=== PATIENT | female | born 1965 | race Caucasian/White ===

== ENCOUNTER → 2017-10-29 08:35 | Outpatient (CLI) | payer OTHER, SELFPAY ==
[2017-11-03 10:39] LABS: HPV APTIMA, High Risk Negative (Negative)
== END ==
PROVIDERS: Family Provider Family Medicine; PCP Family Medicine; Visit Provider Obstetrics & Gynecology
DX: Z12.4 Encounter for screening for malignant neoplasm of cervix (principal)
CPT/HCPCS: 88175; G0145

== ENCOUNTER → 2017-11-22 15:15 | Outpatient (CLI) | payer OTHER, SELFPAY ==
--- NOTE | 2017-11-22 15:15 | DT_ITS ---
This patient was seen during an EMR downtime November 19, 2017 - November 26, 2017. This patient may have a combination of paper and electronic documentation or all paper documentation. All documentation is viewable within the e-chart portion of [facility] for each patient visit.
--- NOTE | 2017-11-22 15:18 | BI_ITS ---
MAMMOGRAPHY - BILATERAL SCREENING REASON FOR EXAM: Female, 52 years old. Routine annual screening examination. PERTINENT HISTORY: Non-contributory. TECHNIQUE: Digital bilateral breast gracy (3D mammographic acquisition) in the CC and MLO projections. 2-D mediolateral oblique (MLO) and craniocaudad (CC) views of both breasts were obtained. CAD: Full Field Digital Mammography with Computer Added Detection was performed. COMPARISON: Comparison is made with prior outside examination dated July 07, 2016. FINDINGS: Breast Composition: There are scattered areas of fibroglandular density. There are no dominant masses or suspicious calcifications. Stable asymmetry were more breast tissue is seen in the upper outer quadrant of the left breast as compared to the right side. No other significant abnormalities are identified. There has been no significant change since the prior study. BI/SCREENING MAMM (CAD), BILAT IMPRESSION: Stable bilateral screening mammogram. Yearly follow-up mammogram recommended. (A) ASSESSMENT CATEGORY: BIRADS Category 2: Benign. A letter regarding these results will be sent to the patient by the facility within 30 days. Approximately 10% of breast cancers are not detected by mammography. A normal mammogram should not delay biopsy of a clinically suspicious abnormality. [id number] Electronically Signed: Polo Cheng MD at 12:37 EDT Tel [phone], Service support ,
== END ==
PROVIDERS: Family Provider Family Medicine; PCP Family Medicine; Visit Provider Obstetrics & Gynecology
DX: Z01.419 Encounter for gynecological examination (general) (routine) without abnormal findings (principal); Z12.31 Encounter for screening mammogram for malignant neoplasm of breast
CPT/HCPCS: 77063; 77067

== ENCOUNTER → 2018-08-02 07:31 | Outpatient (CLI) | payer OTHER, SELFPAY ==
--- NOTE | 2018-08-02 07:44 | EKG12_ITS ---
Test Reason : PRE OP Blood Pressure : / mmHG Vent. Rate : 069 BPM Atrial Rate : 069 BPM P-R Int : 134 ms QRS Dur : 072 ms QT Int : 394 ms P-R-T Axes : 046 029 024 degrees QTc Int : 422 ms Normal sinus rhythm Normal ECG No previous ECGs available Confirmed by DIPAK PALACIOS, KATHERINE ([id number]), assistant film editor DOLLY AGRAWAL ([id number]) on 08/06/2018 11:44:43 AM Referred By: Bandar Jackson Confirmed By:KATHERINE QUESADA MD
[2018-08-02 08:07] LABS: Hematocrit 42.4 % (37-47); Mean Corpuscular Hgb 28.1 pg (27.0-32.0); Mean Platelet Vol. 11.3 fl (6.2-12.0); Platelet Count 184 K/mm3 (150-450); RBC Distribution Width CV 13.8 % (11.6-14.6); RBC Distribution Width SD 42.2 fl (35.1-43.9); Red Blood Count 4.99 M/mm3 (4.2-5.4); White Blood Count 6.3 K/mm3 (4.4-11.0)
[2018-08-02 08:11] LABS: Scan Indicated on CBC? Y/N NO
[2018-08-02 08:36] LABS: Anion Gap 7 (5-15); BUN 16 mg/dL (7-18); BUN/Creat Ratio 22.3 RATIO (10-20); Calcium,Total 8.3 mg/dL (8.5-10.1); Chloride 109 mmol/L (98-107); Creatinine, Serum 0.72 mg/dL (0.55-1.02); EST Glomerular Filtration Rate 91 mL/min (>60); Est Glom Filt Rate - Afr Amer 110 mL/min (>60); Glucose 101 mg/dL (74-106); Potassium 3.9 mmol/L (3.5-5.1); Sodium Level 143 mmol/L (136-145)
== END ==
PROVIDERS: Family Provider Family Medicine; PCP Family Medicine; Referring Provider Orthopaedic Surgery; Visit Provider Orthopaedic Surgery
DX: Z01.810 Encounter for preprocedural cardiovascular examination (principal); Z01.818 Encounter for other preprocedural examination
CPT/HCPCS: 36415; 80048; 85027; 93005

== ENCOUNTER → 2018-11-13 16:43 | Outpatient (CLI) | payer OTHER, SELFPAY ==
[2018-08-27 14:22] VITALS: BMI 34.0
[2018-11-13 18:21] LABS: Free T3 2.4 pg/mL (2.18-3.98); T4 Free Direct 1.08 ng/dL (0.76-1.46); Thyroid Stim Hormone (TSH) 0.97 uIU/mL (0.358-3.74)
[2018-11-15 16:07] LABS: Thyroid Peroxidase AB 11 IU/mL (0-34)
[2018-11-18 11:44] LABS: Thyroglobulin Antibody < 1.0 IU/mL (0.0-0.9)
== END ==
PROVIDERS: Family Provider Family Medicine; PCP Family Medicine; Visit Provider Family Medicine
DX: E01.0 Iodine-deficiency related diffuse (endemic) goiter (principal); R53.83 Other fatigue
CPT/HCPCS: 36415; 84439; 84443; 84481; 86376; 86800

== ENCOUNTER → 2019-07-19 06:58 | Outpatient (CLI) | payer OTHER, SELFPAY ==
[2018-08-27 14:22] VITALS: BMI 34.0
[2019-07-19 08:17] LABS: Absolute Lymphocyte Count 3.04 X10^3/uL (0.83-4.51); Absolute Neutrophil Count 6.1 X10^3/uL (2.0-7.7); Basophil# 0.09 X10^3/uL; Basophil% 0.9 % (0-1); Eosinophil# 0.13 X10^3/uL; Eosinophils% 1.3 % (0-5); Hematocrit 42.1 % (37-47); Hemoglobin 13.6 g/dL (12.0-15.0); Lymphocyte # 3.04 X10^3/ul (4.0); Mean Corp Hgb Conc 32.3 g/dL (32-36); Mean Corpuscular Hgb 26.9 pg (27.0-32.0); Mean Corpuscular Volume 83.4 fL (81-99); Mean Platelet Vol. 11.3 fl (6.2-12.0); Monocyte# 0.73 X10^3/uL; Monocyte% 7.2 % (0-10); NRBC Flagged by Analyzer 0 % (0-5); Neutrophil # 6.12 X10^3/uL (2.7-7.7); Neutrophil % 60.2 % (47-70); Platelet Count 203 K/mm3 (150-450); RBC Distribution Width CV 14.4 % (11.6-14.6); RBC Distribution Width SD 43.5 fl (35.1-43.9); Red Blood Count 5.05 M/mm3 (4.2-5.4); White Blood Count 10.2 K/mm3 (4.4-11.0)
[2019-07-19 09:00] LABS: AST(SGOT) 21 U/L (15-37); Alanine Aminotransfer ALT/SGPT 27 U/L (13-56); Albumin, Serum 3.2 g/dL (3.2-5.0); Alkaline Phosphatase 114 U/L (45-117); Anion Gap 3 (5-15); BUN 14 mg/dL (7-18); BUN/Creat Ratio 18.5 RATIO (10-20); Calcium,Total 8.5 mg/dL (8.5-10.1); Chloride 107 mmol/L (98-107); Cholesterol 162 mg/dL (200); Creatinine, Serum 0.76 mg/dL (0.55-1.02); EST Glomerular Filtration Rate 85 mL/min (>60); Est Glom Filt Rate - Afr Amer 103 mL/min (>60); Free T3 2.9 pg/mL (2.18-3.98); Globulin 3.2 g/dL (2.2-4.2); Glucose 94 mg/dL (74-106); High Density Lipoprotein 56 mg/dL; Potassium 4.2 mmol/L (3.5-5.1); Protein, Total 6.4 g/dL (6.4-8.2); Sodium Level 140 mmol/L (136-145); T4 Free Direct 0.87 ng/dL (0.76-1.46); Thyroid Stim Hormone (TSH) 1.17 uIU/mL (0.358-3.74); Triglycerides 111 mg/dL; Very Low Density Lipoprotein 22 mg/dL (5-40)
== END ==
LOC: LAB 07:01
PROVIDERS: PCP Family Medicine; Referring Provider Family Medicine; Visit Provider Family Medicine
DX: Z00.00 Encounter for general adult medical examination without abnormal findings (principal); Z51.81 Encounter for therapeutic drug level monitoring; R53.83 Other fatigue
CPT/HCPCS: 36415; 80053; 80061; 84439; 84443; 84481; 85025

== ENCOUNTER → 2019-08-22 07:08 | Outpatient (CLI) | payer OTHER, SELFPAY ==
[2018-08-27 14:22] VITALS: BMI 34.0
--- NOTE | 2019-08-22 07:12 | BI_ITS ---
MAMMOGRAPHY - BILATERAL SCREENING REASON FOR EXAM: Female, 54 years old. Routine annual screening examination. PERTINENT HISTORY: Non-contributory. TECHNIQUE: Digital bilateral breast kelechi (3D mammographic acquisition) in the CC and MLO projections. 2-D mediolateral oblique (MLO) and craniocaudad (CC) views of both breasts were obtained. CAD: Full Field Digital Mammography with Computer Added Detection was performed. COMPARISON: Comparison is made with prior examination dated November 22, 2017 and July 07, 2016. FINDINGS: Breast Composition: There are scattered areas of fibroglandular density. There are no dominant masses or suspicious calcifications. Once again, there is stable asymmetry of breast tissue with more breast tissue is seen in the upper quadrant of the left breast as compared to the right side. This is unchanged. No other significant abnormalities are identified. There has been no significant change since the prior study. BI/SCREEN MAMM (CAD) W/KELECHI BILAT IMPRESSION: Stable bilateral screening mammogram. Yearly follow-up mammogram recommended. (A) ASSESSMENT CATEGORY: BIRADS Category 2: Benign. A letter regarding these results will be sent to the patient by the facility within 30 days. Approximately 10% of breast cancers are not detected by mammography. A normal mammogram should not delay biopsy of a clinically suspicious abnormality. [id number] Electronically Signed: Polo Cheng, at 10:08 EST , Service support ,
== END ==
PROVIDERS: PCP Family Medicine; Referring Provider Nurse Practitioner Women's Health; Visit Provider Nurse Practitioner Women's Health
DX: Z12.31 Encounter for screening mammogram for malignant neoplasm of breast (principal)
CPT/HCPCS: 77063; 77067

== ENCOUNTER → 2020-04-26 13:02 | Outpatient (CLI) | payer OTHER, SELFPAY ==
[2020-04-26 12:34] VITALS: BMI 42.1
[2020-04-26 15:35] LABS: Estradiol 18.2 pg/mL; Follicle Stimulating Hormone 73.7 mIU/mL; Thyroid Stim Hormone (TSH) 1.17 uIU/mL (0.358-3.74)
== END ==
PROVIDERS: PCP Family Medicine; Referring Provider Obstetrics & Gynecology; Visit Provider Obstetrics & Gynecology
DX: N95.1 Menopausal and female climacteric states (principal)
CPT/HCPCS: 36415; 82670; 83001; 84443

== ENCOUNTER → 2020-05-24 13:26 | Outpatient (CLI) | payer OTHER, SELFPAY ==
[2020-05-24 13:08] VITALS: BMI 43.0
== END ==
PROVIDERS: PCP Family Medicine; Referring Provider Obstetrics & Gynecology; Visit Provider Obstetrics & Gynecology
DX: Z67.10 Type A blood, Rh positive (principal)
CPT/HCPCS: 36415; 86850; 86900; 86901

== ENCOUNTER → 2020-08-27 12:32 | Outpatient (CLI) | payer OTHER, SELFPAY ==
[2020-05-24 13:08] VITALS: BMI 43.0
--- NOTE | 2020-08-27 12:33 | BI_ITS ---
MAMMOGRAPHY - BILATERAL SCREENING REASON FOR EXAM: Female, 55 years old. Routine annual screening examination. PERTINENT HISTORY: Non-contributory. TECHNIQUE: Digital bilateral breast kelechi (3D mammographic acquisition) in the CC and MLO projections. 2-D mediolateral oblique (MLO) and craniocaudad (CC) views of both breasts were obtained. CAD: Full Field Digital Mammography with Computer Added Detection was performed. COMPARISON: Comparison is made with prior examination dated 08/22/2019 and 11/22/2017. FINDINGS: Breast Composition: There are scattered areas of fibroglandular density. There are no dominant masses or suspicious calcifications. No other significant abnormalities are identified. There has been no significant change since the prior study. BI/SCRN MAMM (CAD)W/KELECHI BILAT IMPRESSION: Stable bilateral screening mammogram. Yearly follow-up mammogram recommended. (A) ASSESSMENT CATEGORY: BIRADS Category 1: Negative. A letter regarding these results will be sent to the patient by the facility within 30 days. Approximately 10% of breast cancers are not detected by mammography. A normal mammogram should not delay biopsy of a clinically suspicious abnormality. [id number] Electronically Signed: Polo Cheng MD at 14:02 EDT , Service support ,
== END ==
PROVIDERS: PCP Family Medicine; Referring Provider Nurse Practitioner Women's Health; Visit Provider Nurse Practitioner Women's Health
DX: Z12.31 Encounter for screening mammogram for malignant neoplasm of breast (principal)
CPT/HCPCS: 77063; 77067

== ENCOUNTER → 2020-10-09 07:00 | Outpatient (CLI) | payer OTHER, SELFPAY ==
[2020-05-24 13:08] VITALS: BMI 43.0
[2020-10-09 07:41] LABS: Absolute Lymphocyte Count 1.74 X10^3/uL (0.83-4.51); Absolute Neutrophil Count 4.5 X10^3/uL (2.0-7.7); Basophil# 0.03 X10^3/uL; Basophil% 0.4 % (0-1); Eosinophil# 0.18 X10^3/uL; Eosinophils% 2.6 % (0-5); Hematocrit 42.7 % (37-47); Hemoglobin 13.7 g/dL (12.0-15.0); Lymphocyte # 1.74 X10^3/ul (0.83-4.51); Lymphocyte % 25.4 % (19-41); Mean Corp Hgb Conc 32.1 g/dL (32-36); Mean Corpuscular Hgb 27.1 pg (27.0-32.0); Mean Corpuscular Volume 84.6 fL (81-99); Mean Platelet Vol. 10.7 fl (6.2-12.0); Monocyte# 0.44 X10^3/uL; Monocyte% 6.4 % (0-10); NRBC Flagged by Analyzer 0 % (0-5); Neutrophil # 4.45 X10^3/uL (2.7-7.7); Neutrophil % 65.1 % (47-70); Platelet Count 239 K/mm3 (150-450); RBC Distribution Width CV 13.5 % (11.6-14.6); RBC Distribution Width SD 41.8 fl (35.1-43.9); Red Blood Count 5.05 M/mm3 (4.2-5.4); White Blood Count 6.9 K/mm3 (4.4-11.0)
[2020-10-09 08:24] LABS: AST(SGOT) 14 U/L (15-37); Alanine Aminotransfer ALT/SGPT 17 U/L (13-56); Albumin, Serum 3.2 g/dL (3.2-5.0); Alkaline Phosphatase 108 U/L (45-117); Anion Gap 6 (5-15); BUN 10 mg/dL (7-18); BUN/Creat Ratio 12.9 RATIO (10-20); Calcium,Total 8.4 mg/dL (8.5-10.1); Chloride 107 mmol/L (98-107); Cholesterol 130 mg/dL (200); Creatinine, Serum 0.78 mg/dL (0.55-1.02); EST Glomerular Filtration Rate 82 mL/min (>60); Est Glom Filt Rate - Afr Amer 99 mL/min (>60); Free T3 2.6 pg/mL (2.18-3.98); Globulin 3.3 g/dL (2.2-4.2); Glucose 111 mg/dL (74-106); High Density Lipoprotein 71 mg/dL; Potassium 3.9 mmol/L (3.5-5.1); Protein, Total 6.5 g/dL (6.4-8.2); Sodium Level 139 mmol/L (136-145); Thyroid Stim Hormone (TSH) 1.55 uIU/mL (0.358-3.74); Triglycerides 105 mg/dL; Very Low Density Lipoprotein 21 mg/dL (5-40)
[2020-10-11 09:39] LABS: Vitamin B12 551 pg/mL (211-911)
== END ==
PROVIDERS: PCP Family Medicine; Referring Provider Family Medicine; Visit Provider Family Medicine
DX: Z00.00 Encounter for general adult medical examination without abnormal findings (principal); E03.9 Hypothyroidism, unspecified; E78.5 Hyperlipidemia, unspecified; D64.9 Anemia, unspecified; E53.8 Deficiency of other specified B group vitamins; R53.83 Other fatigue; R25.2 Cramp and spasm
CPT/HCPCS: 36415; 80053; 80061; 82607; 83735; 84439; 84443; 84481; 85025

== ENCOUNTER 2021-01-18 17:00 | Outpatient (RCR) | payer OTHER, SELFPAY ==
[2020-05-24 13:08] VITALS: BMI 43.0
--- NOTE | 2021-01-04 08:18 | HP.PTEVAL ---
Patient's Visit Information SHANITA MAYER is a 55 year old F referred to Physical Therapy by Dr. Issa Vasquez DPM with a diagnosis of Plantar Fasciitis with Infracalcaneal Spur Bilateral. Date of Evaluation: 01/04/21 Physical Therapist: Di Hernandez DPT - Visit Plan Frequency: 2x /Week Duration: 4 Weeks Plan: Ultrasound- manual- eccentric exercises, stretching and hip/core strength/stabilization. HEP Given IE:Clams, Bridge, Gastroc Stretch with towel, seated DF heel slide - Subjective Patient reports that she has foot pain in both left>right. Went to see Dr. Vasquez who took x-rays and diagnosed with heel spurs on both sides and plantar fasciitis. Has been doing with this over a year but has progressively gotten worse. About 2 years ago had bilateral meniscus repairs due to wear and tear (Dr. Jackson). Reports the pain is always there but can be worse than others on the left- right comes and goes. Pain is located on the medial side of the arch and in the heel. Describes the pain as burning or knife stabbing in the heel. Radiates into the calf but not past the knee- does not radiate to the toes. Right: Worst: 5/10 but now its more like a 0-1/10. no intervention just settled itself off. Left: Worst: 9/10 a couple of weeks ago Best: 0/10. Agg: anything- could be sitting or standing. Best: nothing has tried stretching, ice it comes and goes so weird its hard to pinpoint. Wears between Hoka's, Saucony and flip flops with arch supports. She has a really high arch so 4-5 months ago she started wearing good shoes from [employer]- does have PowerSteps in her old shoes but not the new ones. No injections. Bought a night splint online- wears until about 2 am then it makes her foot go numb so she takes it off. Uses a stretch strap for stretching. No boot during the day. 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 She use to be more active out of work but since the surgeries she has been slower- has a lot more muscle tightness due to mesopause. Has a TM, ellip and bike at home and the bike seems to be the only thing that doesn't flare her up. No N/T in the feet. No other pain in the LE or back- does have OA in her knees and hands- does not effect her daily life at this time. Sleep: can be disturbed- stretch then can go back to sleep. PMHx: none Meds: none - Objective Posture: FH, RS can correct but does not maintain. Gait: slightly antalgic- decreased stance on the left LE- flip flops with mild arch support. HR/TR: able with pain left>right (left: 4/10, right: 1/10). SLS: 15 sec with increased muscle activation and pain. Observation: pes cavus. Palpation: tender along medial arch and into the bottom of the heel on plantar fascia origin. ROM: WFL in all planes of the right- left DF: 5 degrees. Flex: HS: severe, Gastroc: severe, Soleus: severe. Strength: Core: fair, Hip: 4/5 throughout, knee: 5/5 Ankle: 4+/5 throughout with discomfort. Special Test: Windlass Mechanism: positive bilateral Left>Right - Goals Goal 1:: Patient will be I with HEP and progression Goal Time Frame: 4-6 Weeks Goal 2:: Patient will SLS for 30 sec without LOB or pain Goal Time Frame: 4-6 Weeks Goal 3:: Patient will ambulate >300 feet with a normalized gait pattern and no pain Goal Time Frame: 4-6 Weeks - Rehabilitation Potential Physical Therapy Diagnosis: Patient presents with hypomobility- she has decreased pain free ROM, strength/stabilization in LE and core, flexibility and muscular endurance leading to abnormal gait pattern, decreased proprioception and inability to complete pain free ADL's. Rehabilitation Potential: Good - Anticipated Interventions Patient/Client Instruction: Educate patient on: Benefits of Fitness Program Therapeutic Exercise to Include: Strength training, Endurance training, Agility training, Body mechanics, Postural training, Flexibilty training, Gait and locomotor training, Neuromotor development, Passive ROM, Active ROM, Dynamic Lumbar Stabilization, Scapular Strength/Stabilization For the Purpose of:: To improve muscle performance and motor function Functional Training to Include: Gait training Manual Therapy Techniques to Include: Functional dry needling, Soft tissue mobilization TENS: Yes Cryotherapy (ice pack, ice massage): Yes Thermo therapy (hot pack): Yes Ultrasound (thermal/non thermal): Yes Thank you for the opportunity to evaluate your patient. For Medicare and Medicare HMO plans, please review the plan of care and approve it. It will need to be FAXED BACK to us at [phone] for Medicare purposes. For Medicare only, by signing this I certify the plan of care. Please let me know if there are questions or concerns regarding this plan of care. Physician Signature: Date:
--- NOTE | 2021-04-18 07:57 | HP.PT.NRP ---
SHANITA MAYER was seen in my office for initial evaluation on 01/04/21. The following Plan of Care was established for this patient: Initial Frequency: 2x /Week Initial Duration: 4 Weeks Patient/Client Instruction: Educate patient on: Benefits of Fitness Program Therapeutic Exercise to Include: Strength training, Endurance training, Agility training, Body mechanics, Postural training, Flexibilty training, Gait and locomotor training, Neuromotor development, Passive ROM, Active ROM, Dynamic Lumbar Stabilization, Scapular Strength/Stabilization For the Purpose of:: To improve muscle performance and motor function Functional Training to Include: Gait training Manual Therapy Techniques to Include: Functional dry needling, Soft tissue mobilization TENS: Yes Cryotherapy (ice pack, ice massage): Yes Thermo therapy (hot pack): Yes Ultrasound (thermal/non thermal): Yes This patient was last seen in our office . Pertinent comments regarding their Physical therapy will appear below: Patient has not attended PT in over 4 weeks and is appropriate for discharge- return to MD for further evaluation as needed. At this point I will be discontinuing this patient from physical therapy. I would be happy to see this patient again in the future if found appropriate by the physician. Thank you! Di Hernandez, PRABHJOT Balance/Gait/Functional tests - Balance/Special Test Scores Lower Extremity Functional Score: 48
== END 2021-01-18 19:00 | disposition home or self-care (01) ==
LOC: PT 17:00
PROVIDERS: PCP Family Medicine; Referring Provider Podiatrist; Visit Provider Podiatrist
DX: M72.2 Plantar fascial fibromatosis (principal); M77.32 Calcaneal spur, left foot; M77.31 Calcaneal spur, right foot
CPT/HCPCS: 97035; 97110; 97140; 97162

== ENCOUNTER 2021-07-30 06:57 | Outpatient (CLI) | payer OTHER, SELFPAY ==
[2021-07-30 08:09] LABS: Estradiol 13.1 pg/mL; Follicle Stimulating Hormone 33.6 mIU/mL; Thyroid Stim Hormone (TSH) 1.09 uIU/mL (0.358-3.74)
== END 2021-07-30 23:59 | disposition home or self-care (01) ==
LOC: MTLAB 07:00 → LAB 07:01
PROVIDERS: Nurse Practitioner Women's Health; PCP Family Medicine; Referring Provider Family Medicine; Visit Provider Family Medicine
DX: Z13.29 Encounter for screening for other suspected endocrine disorder (principal); N95.1 Menopausal and female climacteric states
CPT/HCPCS: 36415; 82670; 83001; 84443

== ENCOUNTER 2021-08-30 07:02 | Outpatient (CLI) | payer OTHER, SELFPAY ==
--- NOTE | 2021-08-30 07:06 | BI_ITS ---
MAMMOGRAPHY - BILATERAL SCREENING 3-D TOMOSYNTHESIS REASON FOR EXAM: Female, 56 years old. screening for breast cancer PERTINENT HISTORY: No significant family history. TECHNIQUE: 2-D mammograms and 3-D Tomosynthesis of the breast (s) were performed. CAD was performed. COMPARISON: 08/27/2020 FINDINGS: The breast composition is composed of scattered fibroglandular density. Scattered benign calcifications are seen. No dense spiculated masses or suspicious microcalcifications are identified. No architectural distortion is identified. There is no skin thickening or retraction. There has been no significant change since the prior study. BI/SCRN MAMM (CAD)W/KELECHI BILAT IMPRESSION: No mammographic signs of malignancy. Routine yearly mammograms recommended. ASSESSMENT CATEGORY: BIRADS Category 1: Negative. A letter regarding these results will be sent to the patient by the facility within 30 days. FOLLOW UP RECOMMENDATION: Yearly follow up mammogram recommended. (A) Approximately 10% of breast cancers are not detected by mammography. A normal mammogram should not delay biopsy of a clinically suspicious abnormality. Electronically Signed: Dontae Dawn MD at 16:36 EDT ,
== END 2021-08-30 23:59 | disposition home or self-care (01) ==
LOC: OPBI 07:03
PROVIDERS: PCP Family Medicine; Visit Provider Nurse Practitioner Women's Health
DX: Z12.31 Encounter for screening mammogram for malignant neoplasm of breast (principal)
CPT/HCPCS: 77063; 77067

== ENCOUNTER → 2022-07-17 | Outpatient (CLI) | payer OTHER, SELFPAY ==
[2022-07-20 19:40] LABS: HPV APTIMA, High Risk Negative (Negative)
== END | disposition home or self-care (01) ==
LOC: LABSPEC 12:01
PROVIDERS: PCP Family Medicine; Referring Provider Obstetrics & Gynecology; Visit Provider Obstetrics & Gynecology
DX: Z12.4 Encounter for screening for malignant neoplasm of cervix (principal)
CPT/HCPCS: 87624; 88175; G0145

== ENCOUNTER → 2022-09-01 | Outpatient (CLI) | payer OTHER, SELFPAY ==
--- NOTE | 2022-09-01 12:54 | BI_ITS ---
MAMMOGRAPHY - BILATERAL SCREENING 3-D TOMOSYNTHESIS REASON FOR EXAM: Female, 57 years old. Routine screening PERTINENT HISTORY: No significant family history. TECHNIQUE: 2-D mammograms and 3-D Tomosynthesis of the breast (s) were performed. CAD was performed. COMPARISON: 08/27/2020 FINDINGS: The breast composition is almost entirely fat. Scattered benign calcifications are seen. No dense spiculated masses or suspicious microcalcifications are identified. No architectural distortion is identified. There is no skin thickening or retraction. There has been no significant change since the prior study. BI/SCRN MAMM (CAD)W/KELECHI BILAT IMPRESSION: No mammographic signs of malignancy. Routine yearly mammograms recommended. ASSESSMENT CATEGORY: BIRADS Category 1: Negative. A letter regarding these results will be sent to the patient by the facility within 30 days. FOLLOW UP RECOMMENDATION: Yearly follow up mammogram recommended. (A) Approximately 10% of breast cancers are not detected by mammography. A normal mammogram should not delay biopsy of a clinically suspicious abnormality. Electronically Signed: Peter Raygoza MD at 14:12 EDT ,
== END | disposition home or self-care (01) ==
PROVIDERS: PCP Family Medicine; Referring Provider Obstetrics & Gynecology; Visit Provider Obstetrics & Gynecology
DX: Z12.31 Encounter for screening mammogram for malignant neoplasm of breast (principal)
CPT/HCPCS: 77063; 77067

== ENCOUNTER → 2023-09-03 | Outpatient (CLI) | payer OTHER, SELFPAY ==
--- NOTE | 2023-09-03 12:46 | BI_ITS ---
MAMMOGRAPHY - BILATERAL SCREENING REASON FOR EXAM: Female, 58 years old. Routine annual screening examination. PERTINENT HISTORY: Non-contributory. Prominent right axillary lymph node. TECHNIQUE: Digital bilateral breast kelechi (3D mammographic acquisition) in the CC and MLO projections. 2-D mediolateral oblique (MLO) and craniocaudad (CC) views of both breasts were obtained. CAD: Full Field Digital Mammography with Computer Added Detection was performed. COMPARISON: Comparison is made with prior study dated September 01, 2022 and August 30, 2021. FINDINGS: Breast Composition: There are scattered areas of fibroglandular density. There are no dominant masses or suspicious calcifications. Enlarged right axillary lymph node as compared to prior study. Clinical correlation recommended. No other significant abnormalities are identified. There has been no significant change since the prior study. BI/SCRN MAMM (CAD)W/KELECHI BILAT IMPRESSION: Stable bilateral screening mammogram. Yearly follow-up mammogram recommended. (A). Prominence of the right axial lymph node. Clinical correlation recommended. ASSESSMENT CATEGORY: BIRADS Category 2: Benign. A letter regarding these results will be sent to the patient by the facility within 30 days. Approximately 10% of breast cancers are not detected by mammography. A normal mammogram should not delay biopsy of a clinically suspicious abnormality. [id number] Electronically Signed: Polo Cheng MD at 13:29 EDT ,
== END | disposition home or self-care (01) ==
LOC: OPBI 12:44
PROVIDERS: PCP Family Medicine; Referring Provider Obstetrics & Gynecology; Visit Provider Obstetrics & Gynecology
DX: Z12.31 Encounter for screening mammogram for malignant neoplasm of breast (principal)
CPT/HCPCS: 77063; 77067

== ENCOUNTER → 2023-09-08 | Outpatient (CLI) | payer OTHER, SELFPAY ==
[2023-09-08 08:02] LABS: Absolute Lymphocyte Count 1.16 X10^3/uL (0.83-4.51); Absolute Neutrophil Count 3.7 X10^3/uL (2.0-7.7); Basophil# 0.02 X10^3/uL; Basophil% 0.4 % (0-1); Eosinophil# 0.17 X10^3/uL; Eosinophils% 3.1 % (0-5); Hematocrit 41.9 % (37-47); Hemoglobin 13.8 g/dL (12.0-15.0); Lymphocyte # 1.16 X10^3/ul (0.83-4.51); Mean Corp Hgb Conc 32.9 g/dL (32-36); Mean Corpuscular Hgb 26.9 pg (27.0-32.0); Mean Corpuscular Volume 81.7 fL (81-99); Mean Platelet Vol. 10.7 fl (6.2-12.0); Monocyte# 0.45 X10^3/uL; Monocyte% 8.2 % (0-10); NRBC Flagged by Analyzer 0 % (0-5); Neutrophil # 3.69 X10^3/uL (2.7-7.7); Neutrophil % 66.8 % (47-70); Platelet Count 183 K/mm3 (150-450); RBC Distribution Width CV 13.3 % (11.6-14.6); RBC Distribution Width SD 39.6 fl (35.1-43.9); Red Blood Count 5.13 M/mm3 (4.2-5.4); White Blood Count 5.5 K/mm3 (4.4-11.0)
[2023-09-08 08:42] LABS: ALB/GLOB Ratio 1.2 RATIO (0.9-2.4); AST(SGOT) 16 U/L (15-37); Alanine Aminotransfer ALT/SGPT 18 U/L (13-56); Albumin, Serum 3.4 g/dL (3.2-5.0); Alkaline Phosphatase 124 U/L (45-117); Anion Gap 4 (5-15); BUN 14 mg/dL (7-18); BUN/Creat Ratio 18.6 RATIO (10-20); Calcium,Total 8.2 mg/dL (8.5-10.1); Chloride 110 mmol/L (98-107); Cholesterol 119 mg/dL (200); Creatinine, Serum 0.75 mg/dL (0.55-1.02); EST Glomerular Filtration Rate 85 mL/min (>60); Est Glom Filt Rate - Afr Amer 102 mL/min (>60); Free T3 2.1 pg/mL (2.18-3.98); Globulin 2.8 g/dL (2.2-4.2); Glucose 121 mg/dL (74-106); High Density Lipoprotein 48 mg/dL; Potassium 4.1 mmol/L (3.5-5.1); Protein, Total 6.2 g/dL (6.4-8.2); Sodium Level 141 mmol/L (136-145); T4 Free Direct 1.09 ng/dL (0.76-1.46); Thyroid Stim Hormone (TSH) 1.22 uIU/mL (0.358-3.74); Triglycerides 58 mg/dL; Very Low Density Lipoprotein 12 mg/dL (5-40)
== END | disposition home or self-care (01) ==
PROVIDERS: PCP Family Medicine; Referring Provider Family Medicine; Visit Provider Family Medicine
DX: Z00.00 Encounter for general adult medical examination without abnormal findings (principal); E03.9 Hypothyroidism, unspecified; E78.5 Hyperlipidemia, unspecified; D64.9 Anemia, unspecified
CPT/HCPCS: 36415; 80053; 80061; 84439; 84443; 84481; 85025

== ENCOUNTER → 2024-03-11 | Outpatient (CLI) | payer OTHER, SELFPAY ==
--- NOTE | 2024-03-11 07:03 | RAD_ITS ---
STUDY: X-RAY CHEST REASON FOR EXAM: Female, 58 years old. Cough TECHNIQUE: Frontal and lateral views of the chest COMPARISON: None. FINDINGS: The lungs are clear. There are no pleural effusions. There is no pneumothorax. The heart is normal in size. The visualized osseous structures are within normal limits. RAD/Chest PA and Lateral IMPRESSION: No acute thoracic pathology. Electronically Signed: Maninder Jacobo MD at 16:57 EDT ,
== END | disposition home or self-care (01) ==
LOC: LAB 07:00
PROVIDERS: PCP Family Medicine; Referring Provider Nurse Practitioner Family; Visit Provider Nurse Practitioner Family
DX: R05.9 Cough, unspecified (principal)
CPT/HCPCS: 71046

== ENCOUNTER → 2024-10-03 | Outpatient (CLI) | payer OTHER, SELFPAY ==
[2024-10-03 15:22] LABS: Absolute Lymphocyte Count 0.83 X10^3/uL (0.83-4.51); Absolute Neutrophil Count 3.2 X10^3/uL (2.0-7.7); Basophil# 0.03 X10^3/uL; Basophil% 0.6 % (0-1); Hematocrit 34.2 % (37-47); Hemoglobin 10.8 g/dL (12.0-15.0); Lymphocyte # 0.83 X10^3/ul (0.83-4.51); Lymphocyte % 16.3 % (19-41); Mean Corp Hgb Conc 31.6 g/dL (32-36); Mean Corpuscular Hgb 27.2 pg (27.0-32.0); Mean Corpuscular Volume 86.1 fL (81-99); Mean Platelet Vol. 10.1 fl (6.2-12.0); Monocyte# 0.93 X10^3/uL; Monocyte% 18.3 % (0-10); NRBC Flagged by Analyzer 0 % (0-5); Neutrophil # 3.17 X10^3/uL (2.7-7.7); Neutrophil % 62.2 % (47-70); Platelet Count 155 K/mm3 (150-450); RBC Distribution Width CV 16.4 % (11.6-14.6); RBC Distribution Width SD 51.9 fl (35.1-43.9); Red Blood Count 3.97 M/mm3 (4.2-5.4); White Blood Count 5.1 K/mm3 (4.4-11.0)
[2024-10-03 15:57] LABS: ALB/GLOB Ratio 1.4 RATIO (0.9-2.4); AST(SGOT) 15 U/L (<=31); Alanine Aminotransfer ALT/SGPT 10 U/L (<=34); Albumin, Serum 3.6 g/dL (3.5-5.0); Alkaline Phosphatase 131 U/L (35-104); Anion Gap 11 (5-15); BUN 10 mg/dL (4-19); BUN/Creat Ratio 13.5 RATIO (10-20); Calcium,Total 8.8 mg/dL (7.6-11.0); Carbon Dioxide 24.6 mmol/L (21.0-32.0); Chloride 101 mmol/L (98-108); Creatinine, Serum 0.73 mg/dL (0.70-1.20); EST Glomerular Filtration Rate 96 (>60); Globulin 2.6 g/dL (2.2-4.2); Glucose 99 mg/dL (70-99); LDH 210 U/L (84-246); Potassium 3.8 mmol/L (3.3-5.1); Protein, Total 6.2 g/dL (5.9-8.4); Sodium Level 137 mmol/L (133-145); Thyroid Stim Hormone (TSH) 0.804 uIU/mL (0.300-4.200)
[2024-10-06 16:08] LABS: PROEL- A/G Ratio 1.2 (0.7-1.7); PROEL- Albumin 3.1 g/dL (2.9-4.4); PROEL- Alpha-1 Globulin 0.3 g/dL (0.0-0.4); PROEL- Alpha-2 Globulin 0.8 g/dL (0.4-1.0); PROEL- Beta Globulin 0.9 g/dL (0.7-1.3); PROEL- Gamma Globulin 0.5 g/dL (0.4-1.8); PROEL- Globulin, Total 2.6 g/dL (2.2-3.9); PROEL- TOTAL PROTEIN 5.7 g/dL (6.0-8.5); PROEL-M-Spike Comment: g/dL (Not Observed); Thyroglobulin Antibody < 1.0 IU/mL (0.0-0.9); Thyroid Peroxidase AB 20 IU/mL (0-34)
== END | disposition home or self-care (01) ==
PROVIDERS: PCP Family Medicine; Visit Provider Family Medicine
DX: R22.0 Localized swelling, mass and lump, head (principal); E03.9 Hypothyroidism, unspecified; R53.83 Other fatigue; Z51.81 Encounter for therapeutic drug level monitoring
CPT/HCPCS: 36415; 80053; 83615; 84165; 84439; 84443; 84481; 85025; 86376; 86800